=== PATIENT | male | born 1955 | race Caucasian/White ===

== ENCOUNTER 2020-05-13 08:38 | Day surgery (SDC) | payer OTHER, SELFPAY ==
[~2020-05-13] VITALS: Ht 177.8 cm; Wt 113.4 kg
[2020-05-13] MEDS ORDERED: fentaNYL citrate 0.05 MG/ML VIAL ONE (11:33)
[2020-05-13] MEDS ORDERED: LIDOCAINE 2% 100 MG/5 ML UJET TP ONE (11:34)
[2020-05-13] MEDS ORDERED: KETOROLAC 60 MG/2 ML VIAL IM ONE (11:45)
== END 2020-05-13 12:40 | disposition home or self-care (01) ==
LOC: MDS 08:38 → MFCC 08:49 → MDS 12:40
PROVIDERS: ATTEND Internal Medicine Gastroenterology
DX: K62.5 Hemorrhage of anus and rectum (principal); K57.30 Diverticulosis of large intestine without perforation or abscess without bleeding; Z87.891 Personal history of nicotine dependence; Z79.899 Other long term (current) drug therapy; Z68.36 Body mass index [BMI] 36.0-36.9, adult; Z20.828 Contact with and (suspected) exposure to other viral communicable diseases
CPT/HCPCS: 45378; J1885; U0003; J3010